=== PATIENT | male | born 1960 | race Caucasian/White ===

== ENCOUNTER 2022-01-24 11:37 | Emergency (ER) | payer MEDICARE, OTHER ==
[~2022-01-24] VITALS: Ht 190.5 cm; Wt 79.4 kg
[2022-01-24] MEDS ORDERED: JARDIANCE10 MG PO (11:58)
[2022-01-24] MEDS ORDERED: Coreg25 MG PO (11:58)
[2022-01-24] MEDS ORDERED: SERTRALINE HCL150 M1 PO (11:58)
[2022-01-24] MEDS ORDERED: HYDRA50 PO (11:58)
[2022-01-24] MEDS ORDERED: HUMALOG100 UNIT/1 SC (12:01)
[2022-01-24] MEDS ORDERED: ATOR80 PO (12:01)
[2022-01-24] MEDS ORDERED: ENTRESTO 97 MG1 EACH PO (12:01)
[2022-01-24] MEDS ORDERED: SPIR25 PO (12:01)
== END 2022-01-24 12:01 | disposition home or self-care (01) ==
LOC: ER 11:37
DX: Z76.0 Encounter for issue of repeat prescription (principal); Z79.4 Long term (current) use of insulin; Z79.899 Other long term (current) drug therapy
CPT/HCPCS: 99281